=== PATIENT | female | born 1990 | race Two or more races ===

== ENCOUNTER 2024-05-21 10:47 | Emergency (ER) | payer MEDICAID, SELFPAY ==
[2024-05-21 11:07] VITALS: BP 112/71; PULSE 69; RESP 16; TEMP 36.8; O2SAT 100; BMI 27.1
--- NOTE | 2024-05-21 11:16 | XR_ITS ---
Examination: Pelvic ultrasound, transabdominal, complete Technique: Transabdominal ultrasound of the pelvis performed using grayscale imaging Date and time of exam: May 21 2024 1231 hours INDICATIONS: Heavy vaginal bleeding and pelvic pain beginning 2 days ago FINDINGS: Uterus 7.2 x 4.5 x 5.4 cm Endometrial stripe 0.8 cm No uterine mass or intrauterine gestation Right ovary 3.3 x 1.3 x 2.1 cm arterial flow Left ovary 3.1 x 1.7 x 1.7 cm arterial flow IMPRESSION: Negative examination
--- NOTE | 2024-05-21 11:20 | EDNOTE_ITS ---
ED Female Urogenital RME/HPI General Chief complaint: Urogenital-Female Stated complaint: lower abd. cramping, vaginal bleeding, lmp x2mo. Time Seen by Provider: 05/21/24 11:04 Arrival date/time: 05/21/24 10:47 RME / HPI RME / HPI Narrative: This section includes all my notes and documentations, including HPI, PE, and ED course.? Jhony Cadena MD HPI: 34 year old female with history of tubal ligation presents to the ED for complaint of pain to her lower abdomen and lower back beginning last night and worsening this morning. Described pain as cramping aching in sensation, rating as moderate-severe. Accompanied by vaginal bleeding and passing tissue-like material. States her LMP was 04/07/2024 and did not have a menses last month which is unusual for her. ROS: All negative except as documented in HPI. Physical Exam: General:? Alert and oriented.? No acute distress when remaining still.?? ENT:? No nasal congestion.? Neck:? Supple.? Heart:? RRR.? Lungs:? No respiratory distress.? Good air movement.? No rhonchi, wheezing, rales.?? Abdomen:? Soft and nontender.?? Legs:? No clubbing, cyanosis, edema.? Skin:? Warm and dry.?? Neuro:? Alert and oriented X 3.?? I reviewed all diagnostic test results. My review of the US report is? Blood tests and urine tests? At this point, diagnoses include? Treatment here included? Significant improvement Not yet done: Based on my best medical judgment, made decision no further evaluation or treatment indicated at this time.? Patient understands and agrees to the discharge instructions customized and printed, see below. Jhony Cadena MD Discharge Instructions from Dr. Cadena printed for you: 1. All your tests today were normal, including pelvic ultrasound and blood tests. 2. As your uterus gets everything out, you will feel back to normal. 3. Apply ice or heat if helpful. Tylenol/ibuprofen as needed. 4. See a private doctor on 05/24/2024 if not completely better. 5. Seek immediate medical care with worsening or with any concerns Related Data Home Medications ?Medication ?Instructions ?Recorded ?Confirmed albuterol sulfate 90 mcg/actuation 1 inh inhalation QID PRN Shortness 02/20/23 02/29/24 aerosol inhaler Of Breath hydroxyzine HCl 10 mg tablet 10 mg PO HS 02/20/23 02/29/24 Previous Rx's ?Medication ?Instructions ?Recorded docusate sodium 100 mg capsule 100 mg PO BID #40 caps 02/29/24 (Colace) hydrocodone 5 mg-acetaminophen 325 1 tab PO Q6H PRN pain (scale score 02/29/24 mg tablet 7-10) #15 tabs ibuprofen 600 mg tablet 600 mg PO Q8H PRN pain (scale 02/29/24 score 4-6) #15 tabs Allergies Allergy/AdvReac Type Severity Reaction Status Date / Time Penicillins Allergy Intermediate SWELLING Verified 05/21/24 10:51 ITCHY RASH Review of Systems Review of Systems Systems Reviewed: All systems reviewed, normal except as documented Past Medical History Past Medical History CARDIAC: Positive Cardiac Disorders, Cardiac Arrhythmia (bradycardia 39/min), Heart Murmur, Hypercholesterolemia (fish oil) and Varicose Veins (Vaginal Area) RESPIRATORY: Positive Asthma and Sleep Apnea (waiting on CPAP) GASTROINTESTINAL: Positive Gastrointestinal Disorders and Gall Bladder Disease GENITOURINARY: Positive Genitourinary Disorders and Kidney Stones REPRODUCTIVE: Positive Previous Pregnancies (x4) PSYCHO/SOCIAL: Positive Anxiety and Depression OTHER HISTORY: Positive Chicken Pox Family History FAMILY HISTORY: Positive Family Psychiatric Problems, Family Cardiac Disorders, Family Gastrointestinal Problems, Family Surgery and Family Anesthesia Reaction Surgical History SURGICAL: Positive Tubal Ligation; Negative Section Social History SMOKING STATUS: Never smoker SECOND HAND EXPOSURE: No SUBSTANCE USE: does not use ED Exam Narrative Physical exam: As noted in HPI Course Quality Measures none Orders Category Date Time Status US pelvic complete Stat Exams 05/21/24 11:16 Completed CBC Stat Lab 05/21/24 11:56 Completed CMP [Comprehensive Metabolic Panel] Stat Lab 05/21/24 11:56 Completed HCG Qualitative,Urine Stat Lab 05/21/24 11:17 Completed UA, C/S IF [Urinalysis, C/S if Indicated] Stat Lab 05/21/24 11:17 Completed Vital Signs Vital signs: Vital Signs Temperature 98.2 F 05/21/24 11:07 Pulse Rate 69 05/21/24 11:07 Respiratory Rate 16 05/21/24 11:07 Blood Pressure 112/71 05/21/24 11:07 Pulse Oximetry (%) 100 05/21/24 11:07 Oxygen Delivery Method Room Air 05/21/24 11:07 Pulse ox is 100% on room air which is adequate. Urogenital - Female MDM Narrative MDM Narrative:: Ann Morgan am scribing for and in the presence of Dr. Cadena. Patient data External records reviewed:: [facility] previous records (I reviewed ED visit on 01/27/2024) Clinical information provided by:: patient Social determinants that could affect healthcare access:: mental health (Anxiety ) Patient has the following chronic illnesses:: Asthma, anxiety How is presenting disease/condition affected by chronic disease/condition?: uneffected by Evaluation data The following diagnostics were reviewed and interpreted by me:: lab results and radiology exam(s) Lab and/or radiology exams considered but not ordered:: None Interpretation Summary: US pelvic complete show no acute process, negative examination. Medications / Prescriptions Medications or Prescriptions considered but not ordered:: None Medication administrations:: None Consultations Consultation(s) initiated? (list below): No Diagnosis Urogenital Female Differential Diagnosis: ovarian cyst, cystitis, dysmenorrhea and other (Menses) Most likely diagnosis given after review of the tests above:: Menorrhagia Admission Indicated Admission indicated?: not indicated Admission Request Was there a request for admission?: No Disposition Plan Disposition Plan: Discharge Discharge Attestation Discharge Attestation: The patient and all family members were given an opportunity to ask questions and understood the discharge instructions. Discharge instructions specifically effects, indications for sooner follow up or return to the emergency department, and the expected course of current diagnosis. Patient condition: Stable Discharge Plan Plan Patient Disposition: HOME (Self Care) Prescriptions/Referrals Prescriptions/Med Rec: No Action hydroxyzine HCl 10 mg Tablet 10 mg PO HS albuterol sulfate 90 mcg/actuation Hfa Aerosol Inhaler 1 inh INHALATION QID PRN (Reason: Shortness Of Breath) docusate sodium [Colace] 100 mg capsule 100 mg PO BID Qty: 40 0RF ibuprofen 600 mg tablet 600 mg PO Q8H PRN (Reason: pain (scale score 4-6)) Qty: 15 0RF hydrocodone-acetaminophen 5-325 mg tablet 1 tab PO Q6H MDD 4 PRN (Reason: pain (scale score 7-10)) Qty: 15 0RF Referrals: Sarah Almgauer FNP [Primary Care Provider] - In 1 week Problem List Clinical Impression: Menorrhagia Patient/Caregiver Discharge Instructions Discharge Activity: activity as tolerated Education Materials: ED Heavy Menstrual Bleeding Additional Instructions: Discharge Instructions from Dr. Cadena printed for you: 1. All your tests today were normal, including pelvic ultrasound and blood tests. 2. As your uterus gets everything out, you will feel back to normal. 3. Apply ice or heat if helpful. Tylenol/ibuprofen as needed. 4. See a private doctor on 05/24/2024 if not completely better. 5. Seek immediate medical care with worsening or with any concerns Print Language: Beninese Stand Alone Forms: Vee Award Info., Patient Portal Info Letter
[2024-05-21 11:59] LABS: Bilirubin,Urine Negative (Negative); Blood,Urine 3+ (Negative); Clarity,Urine Clear (Clear/Hazy); Collection Type, Urine Clean Catch; Color,Urine Lt-Yellow (Lt Yel-Yel); Culture Indicated,Urine Not Indicated; Glucose, Urine Negative (Negative); Ketones,Urine Negative (Negative); Leukocyte Esterase,Urine Negative (Negative); Nitrite,Urine Negative (Negative); PH,Urine 6.5 (5.0-7.0); Protein,Urine Trace (Neg - Trace); RBC,Urine 11 /hpf (0-3); Specific Gravity,Urine 1.029 (1.001-1.035); Squamous Epithelial Cell,Urine 2 /hpf (0-5); Urobilinogen,Urine Negative mg/dL (0.0-1.0); WBC,Urine 3 /hpf (0-5)
[2024-05-21 12:05] LABS: HCG Qualitative,Urine Negative
[2024-05-21 12:28] LABS: Basophils % (Auto) 0 % (0-2.5); Eosinophils # (Auto) 0.1 Thou/mm3 (0.0-0.5); Eosinophils % (Auto) 1 % (0-10); Hematocrit 37.9 % (36.0-46.0); Hemoglobin 12.5 g/dL (12.0-16.0); Immature Granulocytes % (Auto) 0 % (0-0); Immature Granulocytes Auto 0.03 Thou/mm3 (0.00-0.00); Lymphocytes # (Auto) 2.1 Thou/mm3 (1.0-4.8); Lymphocytes % (Auto) 25 % (10-50); Mean Corpuscular Hemoglobin 28.5 pg (25.0-35.0); Mean Corpuscular Volume 87 fL (80-100); Monocytes # (Auto) 0.6 Thou/mm3 (0.0-0.8); Monocytes % (Auto) 7 % (0-12); Neutrophils # (Auto) 5.7 Thou/mm3 (1.8-7.7); Neutrophils % (Auto) 67 % (37-80); Nucleated Red Blood Cell % 0 /100 WBC (0); Platelet Count 314 Thou/mm3 (140-440); RDW Standard Deviation 41.5 fL (36.4-46.3); Red Blood Count 4.38 Miln/mm3 (4.00-5.20); White Blood Count 8.5 Thou/mm3 (3.6-11.0)
[2024-05-21 12:48] LABS: Alanine Aminotransferase 20 U/L (10-49); Albumin, Serum 4.5 gm/dL (3.5-5.0); Albumin/Globulin Ratio 1.5 (1.2-2.2); Alkaline Phosphatase 77 U/L (46-116); Anion Gap 6 (7-16); Aspartate Amino Transferase 18 U/L (0-34); BUN/Creatinine Ratio 19 Ratio (12-20); Bilirubin,Total 0.4 mg/dL (0.3-1.2); Blood Urea Nitrogen 13 mg/dL (9-23); Carbon Dioxide 26.2 mMol/L (20.0-31.0); Chloride 107 mMol/L (98-107); Creatinine (Component) 0.7 mg/dL (0.6-1.3); Estimated Creatinine Clearance 103.8 mL/min (>60); Globulin 3.1 gm/dL (2.3-3.5); Glucose 97 mg/dL (74-106); Osmolality,Calculated 277 (275-295); Potassium 3.8 mMol/L (3.4-5.1); Sodium 139 mMol/L (136-145); Total Protein 7.6 gm/dL (5.7-8.2); eGFR > 60 See Note
== END 2024-05-21 13:05 | disposition home or self-care (01) ==
PROVIDERS: Nurse Practitioner Family; Emergency Provider Emergency Medicine; PCP Registered Nurse Community Health
DX: N92.0 Excessive and frequent menstruation with regular cycle (principal)
CPT/HCPCS: 36415; 76856; 80053; 81001; 81025; 85025; 86850; 86900; 86901; 99284

== ENCOUNTER 2024-12-03 21:33 | Emergency (ER) | payer MEDICAID, SELFPAY ==
[2024-12-03 21:34] VITALS: BP 127/87; PULSE 89; RESP 20; TEMP 36.9; O2SAT 98; BMI 29.6
--- NOTE | 2024-12-03 21:38 | EKG_ITS ---
[facility] Test Date: 2024-12-03 Pat Name: OPAL MARTIN Department: Room: - Gender: Female Director Medical Economics: : 1990 Requested By: ED Temporary Provider Order Number: [id number] Reading MD: ED Temporary Provider Measurements Intervals [place] Rate: 81 P: 8 DE: 151 QRS: 11 QRSD: 84 T: 0 QT: 354 QTc: 412 Interpretive Statements SINUS RHYTHM WITH SINUS ARRHYTHMIA MINIMAL VOLTAGE CRITERIA FOR LVH, CONSIDER NORMAL VARIANT [MEETS CRITERIA IN ONE OF: R(aVL), S(V1), R(V5), R(V5/V6)+S(V1)] Compared to ECG 02/20/2023 12:10:23 No significant changes /store/S0/[id number]
--- NOTE | 2024-12-03 22:29 | EDNOTE_ITS ---
<Statement entered by Cecilia Gold MD - 12/04/24 04:48> As co-signing physician, I was present and available for consult prn. I concur with the plan and care as documented by the midlevel provider. ED Skin Abcess FB-RME/HPI General Chief complaint: Extremity Injury, Upper Stated complaint: BIT BY SOMETHING TO LT ARM AND PAIN GOING TO CHEST Time Seen by Provider: 12/03/24 22:19 Arrival date/time: 12/03/24 21:33 34F with history of asthma presents to ED with L arm/skin burning pain and itchiness after she was bit by something, which she believes is some insect. Pain started radiating up to chest and head. There is also some mouth/lip numbness, muscle cramping and N/V. Limitations: no limitations Related Data Home Medications ?Medication ?Instructions ?Recorded ?Confirmed albuterol sulfate 90 mcg/actuation 1 inh inhalation QI D PRN Shortness 02/20/23 02/29/24 aerosol inhaler Of Breath hydroxyzine HCl 10 mg tablet 10 mg PO HS 02/20/2302/12 Previous Rx's ?Medication ?Instructions ?Recorded docusate sodium 100 mg capsule 100 mg PO BID #40 caps 02/29/24 (Colace) hydrocodone 5 mg-acetaminophen 325 1 tab PO Q6H PRN pa in (scale score 02/29/24 mg tablet 7-10) #15 tabs ibuprofen 600 mg tablet 600 mg PO Q8H PRN pain (scal e 02/29/24 score 4-6) #15 tabs Allergies Allergy/AdvReac Type Severity Reaction Status Date / Time Penicillins Allergy Intermediate SWELLING Verified 12/03/24 21:34 ITCHY RASH Review of Systems Review of Systems Systems Reviewed: All systems reviewed, normal except as documented Constitutional Constitutional: Reports system reviewed and no additional complaints, except as documented, Denies fever(s) and Denies headache(s) ENT Ears, Nose, Mouth, and Throat: Denies disequilibrium and Denies headache(s) Cardiovascular Cardiovascular: Reports system reviewed and no additional complaints, except as documented, Reports as per HPI, Reports chest pain and Denies dyspnea Respiratory Respiratory: Reports system reviewed and no additional complaints, except as documented, Denies cough and Denies dyspnea Gastrointestinal Gastrointestinal: Reports system reviewed and no additional complaints, except as documented, Denies abdominal pain, Denies nausea and Denies vomiting Musculoskeletal Musculoskeletal: Reports as per HPI, Reports muscle cramps and Reports numbness Integumentary/Breasts Skin/Breast: Reports as per HPI, Reports pruritus and Reports skin pain Neurologic Neurologic: Reports system reviewed and no additional complaints, except as documented, Reports as per HPI, Denies confusion, Denies disequilibrium, Denies headache(s) and Reports numbness Psychiatric Psychiatric: Denies confusion Past Medical History Past Medical History NEUROLOGIC: Negative Neurological Disorders or Seizures CARDIAC: Positive Cardiac Disorders, Cardiac Arrhythmia (bradycardia 39/min), Heart Murmur, Hypercholesterolemia (fish oil) and Varicose Veins (Vaginal Area); Negative Congestive Heart Failure RESPIRATORY: Positive Asthma and Sleep Apnea (waiting on CPAP); Negative Chronic Obstructive Pulmonary Disease (COPD) GASTROINTESTINAL: Positive Gastrointestinal Disorders and Gall Bladder Disease; Negative Hepatitis or Colorectal Cancer GENITOURINARY: Positive Genitourinary Disorders and Kidney Stones; Negative Renal Disease or Prostate Cancer REPRODUCTIVE: Positive Previous Pregnancies (x4); Negative Breast Cancer, Endometriosis, Genital Herpes, Gonorrhea, Pelvic Inflammatory Disease, Syphilis, Testicular Cancer or Uterine Prolapse MUSCULOSKELETAL: Negative Musculoskeletal Disorders or Bone Cancer ENDOCRINE: Negative Endocrine Disorders, Diabetes Mellitus Type 1 or Diabetes Mellitus Type 2 HEMATOLOGIC: Negative Blood Disorders, Anemia or Sickle Cell Disease PSYCHO/SOCIAL: Positive Anxiety and Depression; Negative Depression OTHER HISTORY: Positive Chicken Pox; Negative Hospitalization, Autoimmune Disease, Down Syndrome, Developmental Delay, Shingles, Falls, Blood Transfusions, Blood Transfusion Reaction, Anesthesia Reactions, Organ Transplant, Chemotherapy, Radiation Therapy, Hyperbaric Therapy, MRSA, VRSA, Vancomycin-Resistant Enterococci, Human I mmunodeficiency Virus (HIV), Measles, Mumps, Rubella (I[place]ic Measles), Pertussis, Clostridium Difficile, Cancer, Breast Cancer, Cervical Cancer, Colorectal Cancer, Lung Cancer, Ovarian Cancer, Prostate Cancer or Testicular Cancer Family History FAMILY HISTORY: Positive Family Psychiatric Problems, Family Cardiac Disorders, Family Gastrointestinal Problems, Family Surgery and Family Anesthesia Reaction; Negative Family Respiratory Disorders or Family Cancer Surgical History SURGICAL: Positive Tubal Ligation; Negative Section or Organ Transplant Social History SMOKING STATUS: Never smoker SECOND HAND EXPOSURE: No SUBSTANCE USE: does not use ED Exam General Limitations: Present no limitations General appearance: Present alert, anxious and in distress Head Head exam: Present atraumatic Eye Eye exam: Present normal appearance, PERRL and EOMI ENT ENT exam: Present normal exam, normal oropharynx and mucous membranes moist Neck Neck exam: Present normal inspection, full ROM and trachea midline Chest Chest inspection: Present normal inspection and symmetric chest wall rise Respiratory Respiratory exam: Present normal lung sounds bilaterally Cardiovascular Cardiovascular exam: Present regular rate, normal rhythm and normal heart sounds Abdominal Exam Abdominal exam: Present soft and normal bowel sounds Extremities Exam Extremities exam: Present full ROM Expanded Upper Extremity Exam Forearm/Wrist exam: Present full ROM and erythema (Area on L forearm) Back Exam Back exam: Present normal inspection and full ROM Neurological Exam Neurological exam: Present alert, oriented X3 and CN II-XII intact Psychiatric Psychiatric exam: Present normal affect and normal mood Skin Skin exam: Present warm, dry, intact and normal color Course Quality Measures none Orders Category Date Time Status EKG (ED ONLY) *Do not use* NOW Care 12/03/24 21:38 Completed EKG (ED Only) Stat Exams 12/03/24 21:38 Draft Diazepam [Valium] Med 12/03/24 22:19 Discontinued 10 mg PO X1 ONE Famotidine [Pepcid] Med 12/03/24 22:19 Discontinued 20 mg PO X1 ONE HYDROcodone*/APAP 5/325 [[place] 5/325] Med 12/04/24 00:03 Discontinued 1 tab PO X1 ONE MethylPREDNISolone.* [SoluMEDROL Inj] Med 12/03/24 22:19 Discontinued 125 mg IM X1 ONE Ondansetron Odt [Zofran Odt] Med 12/03/24 22:19 Discontinued 4 mg PO X1 ONE Vital Signs Vital signs: Vital Signs Temperature 98.4 F 12/03/24 21:34 Pulse Rate 89 12/03/24 21:34 Respiratory Rate 20 12/03/24 21:34 Blood Pressure 127/87 H 12/03/24 21:34 Pulse Oximetry (%) 98 12/03/24 21:34 O2 at 98% on RA and WNLs Skin / Abscess / Foreign Body MDM Narrative MDM Narrative:: 34F with history of asthma presents to ED with L arm/skin burning pain and itchiness after she was bit by something, which she believes is some insect. Pain started radiating up to chest and head. There is also some mouth/lip numbness, muscle cramping and N/V. Physical exam reveals area of redness on L inner forearm. No obvious bite/entry patricia. Clear lungs and normal WOB. Patient is afebrile, alert, but anxious/appears to be in pain. Speech normal. Gait normal. EKG is NSR. Meds improved symptoms. Upon reassessment, patient just feels sleep after the meds. Ju[employer] given. Patient data External records reviewed:: [facility] previous records Clinical information provided by:: patient Social determinants that could affect healthcare access:: none Patient has the following chronic illnesses:: asthma How is presenting disease/condition affected by chronic disease/condition?: exacerbated by Evaluation data The following diagnostics were reviewed and interpreted by me:: EKG tracing(s) Lab and/or radiology exams considered but not ordered:: ordered Interpretation Summary: above Medications / Prescriptions Medications or Prescriptions considered but not ordered:: ordered Medication administrations:: Medication Administration History Discontinued Medications Hydrocodone Bitart/Acetaminophen (Hydrocodone/Apap 5/325 Tablet) 1 tab PO X1 ONE Stop: 12/04/24 00:04 Last Admin: 12/04/24 00:17 Dose: 1 tab Documented By: BEATRICE Diazepam (Diazepam 5 Mg Tablet) 10 mg PO X1 ONE Stop: 12/03/24 22:20 Last Admin: 12/03/24 22:35 Dose: 10 mg Documented By: MARIA GUADALUPE Famotidine (Famotidine 20 Mg Tablet) 20 mg PO X1 ONE Stop: 12/03/24 22:20 Last Admin: 12/03/24 22:35 Dose: 20 mg Documented By: MARIA GUADALUPE Methylprednisolone Sodium Succinate (Methylprednisolone Sod Succ 62.5 Mg/Ml 2ml Vial) 125 mg IM X1 ONE Stop: 12/03/24 22:20 Last Admin: 12/03/24 22:35 Dose: 125 mg Documented By: MARIA GUADALUPE Admin: 12/03/24 22:34 Dose: 125 mg Documented By: MARIA GUADALUPE Ondansetron HCl (Ondansetron Odt 4 Mg Tabrap) 4 mg PO X1 ONE; Protocol Stop: 12/03/24 22:20 Last Admin: 12/03/24 22:35 Dose: 4 mg Documented By: MARIA GUADALUPE above Consultations Consultation(s) initiated? (list below): No Diagnosis Skin/Abscess Differential Diagnosis: abscess of skin or subcutaneous tissue, viral exanthem, dermatophytosis, urticaria, herpes zoster, allergic reaction to drug, cellulitis, eczema, insect bites, impetigo and contact dermatitis Most likely diagnosis given after review of the tests above:: insect bite Admission Indicated Admission indicated?: not indicated Admission Request Was there a request for admission?: No Disposition Plan Disposition Plan: Discharge Discharge Attestation Discharge Attestation: The patient and all family members were given an opportunity to ask questions and understood the discharge instructions. Discharge instructions specifically effects, indications for sooner follow up or return to the emergency department, and the expected course of current diagnosis. Patient condition: Stable Discharge Plan Plan Patient Disposition: HOME (Self Care) Discharge Disposition comment: Stable Prescriptions/Referrals Prescriptions/Med Rec: No Action hydroxyzine HCl 10 mg Tablet 10 mg PO HS albuterol sulfate 90 mcg/actuation Hfa Aerosol Inhaler 1 inh INHALATION QID PRN (Reason: Shortness Of Breath) docusate sodium [Colace] 100 mg capsule 100 mg PO BID Qty: 40 0RF ibuprofen 600 mg tablet 600 mg PO Q8H PRN (Reason: pain (scale score 4-6)) Qty: 15 0RF hydrocodone-acetaminophen 5-325 mg tablet 1 tab PO Q6H MDD 4 PRN (Reason: pain (scale score 7-10)) Qty: 15 0RF Referrals: Sarah Almaguer FNP [Primary Care Provider] - In 1 week Problem List Clinical Impression: Insect bite Patient/Caregiver Discharge Instructions Education Materials: ED Insect Bite Additional Instructions: Please follow-up with PCP within 24-48 hours and return immediately if symptoms worsen. Print Language: Albanian Stand Alone Forms: Patient Portal Info Letter STACEY/NATHONY Supervising Physician STACEY/ANTHONY Supervising Physician: Dr. Gold
[2024-12-03] MEDS: MethylPREDNISolone SOD SUCC 62.5 MG/ML 2ML VIAL 125 MG IM ×2 (22:34→22:35)
[2024-12-03] MEDS: DIAZEPAM 5 MG TABLET 10 MG PO (22:35)
[2024-12-03] MEDS: FAMOTIDINE 20 MG TABLET PO (22:35)
[2024-12-03] MEDS: ONDANSETRON ODT 4 MG TABRAP PO (22:35)
[2024-12-04] MEDS: HYDROcodone/APAP 5/325 TABLET 1 TAB PO (00:17)
[2024-12-04 00:19] VITALS: BP 130/79; PULSE 56; RESP 22; O2SAT 100
[2024-12-04 01:41] VITALS: BP 116/80; PULSE 57; RESP 16; TEMP 36.6; O2SAT 96
[2024-12-04 01:56] VITALS: RESP 18
== END 2024-12-04 01:59 | disposition home or self-care (01) ==
PROVIDERS: Emergency Provider Emergency Medicine; PCP Registered Nurse Community Health
DX: S40.862A Insect bite (nonvenomous) of left upper arm, initial encounter (principal); W57.XXXA Bitten or stung by nonvenomous insect and other nonvenomous arthropods, initial encounter; I49.8 Other specified cardiac arrhythmias
CPT/HCPCS: 93005; 96372; 99283; J2919; Q0162; A9270

== ENCOUNTER 2024-12-04 10:09 | Emergency (ER) | payer MEDICAID, SELFPAY ==
[2024-12-04 10:10] VITALS: BMI 29.2
[2024-12-04 10:18] VITALS: BP 119/73; PULSE 62; RESP 18; TEMP 36.6; O2SAT 99
--- NOTE | 2024-12-04 11:27 | XR_ITS ---
Examination: AP chest single view Technique one AP portable semiupright chest single view Date and time: December 04, 2024, 12:10 PM INDICATIONS: Chest pain today FINDINGS: Normal heart size. Lungs are clear. Osseous structures are intact IMPRESSION: No active disease.
--- NOTE | 2024-12-04 11:27 | EKG_ITS ---
[facility] Test Date: 2024-12-04 Pat Name: OPAL MARTIN Department: Room: - Gender: Female Infection Prevention Specialist: : 1990 Requested By: Yogi Casillas Order Number: [id number] Reading MD: Yogi Casillas Measurements Intervals [place] Rate: 63 P: 30 TN: 154 QRS: 66 QRSD: 87 T: 42 QT: 418 QTc: 429 Interpretive Statements SINUS RHYTHM WITH SINUS ARRHYTHMIA Compared to ECG 12/03/2024 21:52:57 No significant changes /store/S0/[id number]/[id number]
[2024-12-04] MEDS: ACETAMINOPHEN 500 MG TABLET PO (11:58)
[2024-12-04 12:04] LABS: Basophils # (Auto) 0.0 Thou/mm3 (0.0-0.2); Basophils % (Auto) 0 % (0-2.5); Eosinophils # (Auto) 0.0 Thou/mm3 (0.0-0.5); Eosinophils % (Auto) 0 % (0-10); Hematocrit 39.6 % (36.0-46.0); Hemoglobin 13.6 g/dL (12.0-16.0); Immature Granulocytes Auto 0.07 Thou/mm3 (0.00-0.00); Lymphocytes # (Auto) 1.3 Thou/mm3 (1.0-4.8); Lymphocytes % (Auto) 9 % (10-50); Mean Corpuscular HGB Conc 34.3 g/dl (31.0-37.0); Mean Corpuscular Hemoglobin 28.9 pg (25.0-35.0); Mean Corpuscular Volume 84 fL (80-100); Monocytes # (Auto) 0.3 Thou/mm3 (0.0-0.8); Monocytes % (Auto) 2 % (0-12); Neutrophils # (Auto) 13.0 Thou/mm3 (1.8-7.7); Neutrophils % (Auto) 88 % (37-80); Nucleated Red Blood Cell # 0.00 Thou/mm3 (0.00-0.00); Nucleated Red Blood Cell % 0 /100 WBC (0); Platelet Count 377 Thou/mm3 (140-440); RDW Standard Deviation 41.6 fL (36.4-46.3); Red Blood Count 4.70 Miln/mm3 (4.00-5.20); White Blood Count 14.7 Thou/mm3 (3.6-11.0)
--- NOTE | 2024-12-04 12:10 | PD.EDADULT ---
ED General RME/HPI General Chief complaint: General Adult/Misc Complain Stated complaint: SEVERE JOINT PAIN FROM INSECT BITE YESTERDAY Time Seen by Provider: 12/04/24 11:20 Source: patient Arrival date/time: 12/04/24 10:09 Limitations: no limitations RME / HPI RME / HPI narrative: 34-year-old female who was seen here yesterday. She states yesterday she had pain in her left arm developed urticaria and was treated here with some resolution. She states today she developed worsening left arm pain and now has chest pain and polyarthralgias. She denies any nausea or vomiting. She has no dyspnea or wheezing. No stridor. No salivation. She has no joint erythema or warmth. No fevers or chills. She states she has a history of asthma and mild anxiety. She has no other chronic disease. Related Data Home Medications ?Medication ?Instructions ?Recorded ?Confirmed albuterol sulfate 90 mcg/actuation 1 inh inhalation QID PRN Shortness 02/20/23 02/29/24 aerosol inhaler Of Breath hydroxyzine HCl 10 mg tablet 10 mg PO HS 02/20/23 02/29/24 Previous Rx's ?Medication ?Instructions ?Recorded docusate sodium 100 mg capsule 100 mg PO BID #40 caps 02/29/24 (Colace) hydrocodone 5 mg-acetaminophen 325 1 tab PO Q6H PRN pain (scale score 02/29/24 mg tablet 7-10) #15 tabs ibuprofen 600 mg tablet 600 mg PO Q8H PRN pain (scale 02/29/24 score 4-6) #15 tabs naproxen 500 mg tablet 500 mg PO BID PRN pain #10 tabs 12/04/24 Allergies Allergy/AdvReac Type Severity Reaction Status Date / Time Penicillins Allergy Intermediate SWELLING Verified 12/04/24 10:13 ITCHY RASH Review of Systems Review of Systems Systems Reviewed: All systems reviewed, normal except as documented ED Exam General Limitations: Present no limitations General appearance: Present alert and in no apparent distress Head Head exam: Present atraumatic Eye Eye exam: Present normal appearance, PERRL and EOMI ENT ENT exam: Present normal exam, normal oropharynx and mucous membranes moist Neck Neck exam: Present normal inspection, full ROM and trachea midline Chest Chest inspection: Present normal inspection and symmetric chest wall rise Respiratory Respiratory exam: Present normal lung sounds bilaterally Cardiovascular Cardiovascular exam: Present regular rate, normal rhythm and normal heart sounds Abdominal Exam Abdominal exam: Present soft and normal bowel sounds Extremities Exam Extremities exam: Present normal inspection and full ROM; Absent tenderness or joint swelling Back Exam Back exam: Present normal inspection and full ROM Neurological Exam Neurological exam: Present alert and oriented X3 Psychiatric Psychiatric exam: Present normal affect and normal mood Skin Skin exam: Present warm, dry, intact and normal color; Absent rash Course Quality Measures none Orders Category Date Time Status EKG (ED ONLY) *Do not use* NOW Care 12/04/24 11:27 Completed Insert IV NOW Care 12/04/24 13:51 Active EKG (ED Only) Stat Exams 12/04/24 11:27 Draft XR chest 1V Stat Exams 12/04/24 11:27 Completed CBC Stat Lab 12/04/24 11:40 Completed CK [Creatine Kinase] Stat Lab 12/04/24 13:38 Completed CMP [Comprehensive Metabolic Panel] Stat Lab 12/04/24 11:40 Completed CRP [C-Reactive Protein] Stat Lab 12/04/24 11:40 Completed Drug Screen,Urine Stat Lab 12/04/24 12:13 Ordered HCG,Qualitative Serum Stat Lab 12/04/24 11:40 Completed Lipase Stat Lab 12/04/24 11:40 Completed Magnesium Stat Lab 12/04/24 11:40 Completed Sed Rate (ESR) Stat Lab 12/04/24 11:40 Completed TSH [Thyroid Stimulating Hormone] Stat Lab 12/04/24 11:40 Completed Troponin I Stat Lab 12/04/24 11:40 Completed UA, C/S IF [Urinalysis, C/S if Indicated] Stat Lab 12/04/24 11:27 Ordered Acetaminophen Tab [Tylenol ES Tab] Med 12/04/24 11:27 Discontinued 500 mg PO X1 ONE LORazepam [Ativan] Med 12/04/24 11:26 Discontinued 1 mg PO X1 ONE Lidocaine 5% Patch Med 12/04/24 12:13 Discontinued 1 patch TOP X1 ONE Sodium Chloride 0.9% 1000 ml [Ns] 1,000 ml Med 12/04/24 13:22 Discontinued IV 999 mls/hr hydrOXYzine HCL [Atarax] Med 12/04/24 11:26 Discontinued 25 mg PO X1 ONE Vital Signs Vital signs: Vital Signs Temperature 97.9 F 12/04/24 10:18 Pulse Rate 62 12/04/24 10:18 Respiratory Rate 18 12/04/24 10:18 Blood Pressure 119/73 12/04/24 10:18 Pulse Oximetry (%) 99 12/04/24 10:18 Oxygen Delivery Method Room Air 12/04/24 10:18 Discharge Plan Plan Patient Disposition: HOME (Self Care) Patient condition on transfer: Stable Prescriptions/Referrals Prescriptions/Med Rec: New naproxen 500 mg tablet 500 mg PO BID PRN (Reason: pain) Qty: 10 0RF No Action hydroxyzine HCl 10 mg Tablet 10 mg PO HS albuterol sulfate 90 mcg/actuation Hfa Aerosol Inhaler 1 inh INHALATION QID PRN (Reason: Shortness Of Breath) docusate sodium [Colace] 100 mg capsule 100 mg PO BID Qty: 40 0RF ibuprofen 600 mg tablet 600 mg PO Q8H PRN (Reason: pain (scale score 4-6)) Qty: 15 0RF hydrocodone-acetaminophen 5-325 mg tablet 1 tab PO Q6H MDD 4 PRN (Reason: pain (scale score 7-10)) Qty: 15 0RF Referrals: Sarah Almaguer FNP [Primary Care Provider] - In 1 week Problem List Clinical Impression: Arm pain Patient/Caregiver Discharge Instructions Education Materials: ED Myalgias Additional Instructions: - Use of provided medications as prescribed. - Follow-up with your clinic within a week. *-Return as needed for any worsening or emergent changes. Print Language: Hungarian Stand Alone Forms: Vee Award Info., Patient Portal Info Letter MDM Narrative MDM hospital course: 34-year-old female who was seen here yesterday. She states yesterday she had pain in her left arm developed urticaria and was treated here with some resolution. She states today she developed worsening left arm pain and now has chest pain and polyarthralgias. She denies any nausea or vomiting. She has no dyspnea or wheezing. No stridor. No salivation. She has no joint erythema or warmth. No fevers or chills. She states she has a history of asthma and mild anxiety. She has no other chronic disease. On exam, patient has full range of motion of her limbs. There is no skin changes. She appears very anxious. Workup reveals a leukocytosis of 14 point K, CBC is otherwise unremarkable. Her metabolic panel reveals mild hyperglycemia at 153, otherwise unremarkable. Her CK is mildly elevated at 269. Patient received multiple doses of medications including acetaminophen, hydroxyzine, lidocaine patch, lorazepam, and bolus of NS. I do believe the patient can be discharged from the emergency room for outpatient follow-up and workup. This were discussed with the patient. She will be discharged with a prescription of naproxen to use for 5 days. She is asked to follow-up with her primary doctor within a week. Return at anytime for worsening or emergent changes. Clinical Information Provided by patient Medical Records Reviewed [facility] Meds/Rx Considered, not Ordered None Labs/Rad/Tests considered, not Ordered None Chronic Illness/Social Conditions which may negatively complicate care or outcome(s)-explain: Mental health EKG EKG not done Lab Interpretation Labs: interpreted by mt Lab(s) interpretation(s): Mild leukocytosis. No metabolic derangement mild hyperglycemia is present Imaging Imaging interpretation: none Medication Administration(s) none Medication Administration History Discontinued Medications Acetaminophen (Acetaminophen 500 Mg Tablet) 500 mg PO X1 ONE Stop: 12/04/24 11:28 Last Admin: 12/04/24 11:58 Dose: 500 mg Documented By: KIARA Hydroxyzine HCl (Hydroxyzine Hcl 25 Mg Tablet) 25 mg PO X1 ONE Stop: 12/04/24 11:27 Last Admin: 12/04/24 11:58 Dose: 25 mg Documented By: EF Sodium Chloride (Ns) 1,000 mls @ 999 mls/hr IV .Q1H1M ONE Stop: 12/04/24 14:22 Last Admin: 12/04/24 13:59 Dose: 999 mls/hr Documented By: MARIA GUADALUPE Lidocaine (Lidocaine 5% 1 Patch) 1 patch TOP X1 ONE Stop: 12/04/24 12:14 Last Admin: 12/04/24 12:18 Dose: 1 patch Documented By: OA Lorazepam (Lorazepam 0.5 Mg Tablet) 1 mg PO X1 ONE Stop: 12/04/24 11:27 Last Admin: 12/04/24 11:58 Dose: 1 mg Documented By: EF see above Dispositon Disposition: Discharge Home
[2024-12-04 12:15] LABS: Sed Rate (ESR) 34 mm/hr (0-20)
[2024-12-04] MEDS: LIDOCAINE 5% 1 PATCH TOP (12:18)
[2024-12-04 12:21] LABS: HCG,Qualitative Serum Negative
[2024-12-04 12:28] LABS: Alanine Aminotransferase 23 U/L (10-49); Albumin, Serum 5.0 gm/dL (3.5-5.0); Albumin/Globulin Ratio 1.5 (1.2-2.2); Alkaline Phosphatase 96 U/L (46-116); Anion Gap 12 (7-16); Aspartate Amino Transferase 23 U/L (0-34); BUN/Creatinine Ratio 12 Ratio (12-20); Bilirubin,Total 0.5 mg/dL (0.3-1.2); Blood Urea Nitrogen 11 mg/dL (9-23); C-Reactive Protein 0.5 mg/dL (0.0-0.9); Calcium 9.9 mg/dL (8.3-10.6); Calcium (Corrected) 9.9 mg/dL (8.5-10.1); Carbon Dioxide 22.1 mMol/L (20.0-31.0); Chloride 106 mMol/L (98-107); Creatinine (Component) 0.9 mg/dL (0.6-1.3); Estimated Creatinine Clearance 83.7 mL/min (>60); Globulin 3.3 gm/dL (2.3-3.5); Glucose 153 mg/dL (74-106); Lipase 84 U/L (12-53); Magnesium 1.6 mg/dL (1.6-2.6); Osmolality,Calculated 281 (275-295); Potassium 4.4 mMol/L (3.4-5.1); Sodium 140 mMol/L (136-145); Thyroid Stimulating Hormone 0.72 uIU/mL (0.55-4.78); Total Protein 8.3 gm/dL (5.7-8.2); Troponin I < 0.002 ng/mL (0.0-0.045); eGFR > 60 See Note
[2024-12-04 12:55] VITALS: BP 133/77; PULSE 77; RESP 20; TEMP 36.6; O2SAT 99
[2024-12-04] MEDS: SODIUM CHLORIDE 0.9% 1000 ML 1,000 ML 999 ML IV (13:59)
[2024-12-04 14:28] LABS: Creatine Kinase 269 U/L (34-171)
[2024-12-04] MEDS: KETOROLAC INJ 30 MG/ML VIAL 15 MG IVP (15:15)
[2024-12-04 16:01] VITALS: BP 130/74; PULSE 67; RESP 17; TEMP 36.9; O2SAT 98
[2024-12-04 16:58] LABS: Collection Type, Urine Voided
[2024-12-04 17:08] VITALS: BP 124/82; PULSE 78; O2SAT 99
[2024-12-04 17:11] LABS: Bilirubin,Urine Negative (Negative); Blood,Urine Negative (Negative); Clarity,Urine Clear (Clear/Hazy); Color,Urine Colorless (Lt Yel-Yel); Culture Indicated,Urine Not Indicated; Glucose, Urine Negative (Negative); Ketones,Urine Negative (Negative); Leukocyte Esterase,Urine Negative (Negative); Nitrite,Urine Negative (Negative); PH,Urine 6.5 (5.0-7.0); Protein,Urine Negative (Neg - Trace); RBC,Urine 1 /hpf (0-3); Specific Gravity,Urine 1.009 (1.001-1.035); Squamous Epithelial Cell,Urine 2 /hpf (0-5); Urobilinogen,Urine Negative mg/dL (0.0-1.0); WBC,Urine < 1 /hpf (0-5)
[2024-12-04 17:17] LABS: Amphetamine/Methamp Scrn,U Negative (Negative); Barbiturate Screen,Urine Negative (Negative); Benzodiazepines Screen,Urine Negative (Negative); Benzoylecgonine Screen, Ur Negative (Negative); Fentanyl Screen,Urine Negative (Negative); Opiate Screen,Urine Negative (Negative); THC Screen,Urine Negative (Negative)
== END 2024-12-04 17:08 | disposition home or self-care (01) ==
PROVIDERS: Physician Assistant Medical; Emergency Provider Emergency Medicine; PCP Registered Nurse Community Health
DX: M79.602 Pain in left arm (principal); R07.9 Chest pain, unspecified; I49.8 Other specified cardiac arrhythmias
CPT/HCPCS: 36415; 71045; 80053; 80307; 81001; 82550; 83690; 83735; 84443; 84484; 84703; 85025; 85652; 86140; 93005; 96361; 96374; 99284; J1885; J3490; J7030; A9270

== ENCOUNTER → 2025-01-14 | Outpatient (BNVA) | payer MEDICAID, SELFPAY ==
--- NOTE | 2025-01-14 11:56 | ESPR_ITS ---
RE: OPAL MARTIN : 1990 DATE OF SERVICE: 01/14/2025 CHIEF COMPLAINT: 1. Backache. 2. 1-2 mm calculi bilateral. 3. 8 mm stone distal ureteral left side at ureterovesicular junction status post cysto, retrograde ureteroscopy, laser stone fragmentation, stone basketing, and stent placement, which was subsequently removed. HISTORY OF PRESENT ILLNESS: This is a 34-year-old female. She is 4, para 4, last menstrual period is 01/06/2025. This patient had a large stone in the left ureter. She underwent above procedure. The patient has done very well. The composition of the stone is calcium apatite 90%, calcium oxalate dihydrate 10%. The patient was started on potassium citrate 15 mEq p.o. twice a day after the patient has a Litholink. The patient did not want to take the medication. Then, she was started on baking soda 1-2 teaspoonful by mouth twice a week. The patient quit drinking baking soda. Recently, the patient had a CAT scan of the abdomen and pelvis done with the stone protocol. This revealed 1-2 mm bilateral renal calculi. No obstruction. No hydronephrosis. CAT scan is reviewed by me. The patient has no history of gross hematuria, dysuria, urinary tract infection. She has no history of colicky pain, no history of nausea or vomiting. Past medical history, family history, review of the system, personal history: Please refer to the patient history form dated 01/14/2025. It is an HPI, in EMR. My scouring pads supervisor was my MA Toni. The patient permitted for sensitive health examination. PHYSICAL EXAMINATION: General: Condition is satisfactory, orientation x3. HEENT: Normocephalic and atraumatic. Eyes: No anemia or jaundice. Neck: Supple, trachea is central. Thyroid is not enlarged. Extremities: Revealed no edema, cyanosis, or clubbing. Vital signs: Stable. They are in HPI, in EMR. Chest: Symmetrical. Heart: Regular rate and rhythm. Abdomen: Obese. No masses. Liver, spleen, and kidney not palpable. No CVA tenderness. VARIOUS LABS: BUN is 11, creatinine 0.9, GFR is over 60. This was done on 12/04/2024. Urine is negative for any infection, microscopic hematuria, or proteinuria. PLAN: 1. Drink enough fluids so that she has a urinary output of 2400 mL in 24 hours. 2. The patient is going to start taking baking soda 1-2 teaspoonful twice a week. 3. Litholink. 4. Followup appointment in urology office. 5. All above issues were discussed with the patient in great detail. Questions were answered to his satisfaction. He verbalized understanding. DT: 10:20:31 TT: 11:54:00 Ref: - TID: [id number]
== END | disposition home or self-care (01) ==
PROVIDERS: PCP Registered Nurse Community Health; Referring Provider Registered Nurse Community Health; Visit Provider Urology
DX: N20.0 Calculus of kidney (principal); E66.9 Obesity, unspecified; Z68.29 Body mass index [BMI] 29.0-29.9, adult; E78.00 Pure hypercholesterolemia, unspecified
CPT/HCPCS: 81003; 99212; G0463